=== PATIENT | female | born 1990 | race Caucasian/White ===

== ENCOUNTER 2025-02-24 14:01 | Outpatient (CLI) | payer MEDICAID, SELFPAY ==
[2025-02-24 14:38] LABS: Coronavirus 19, PCR Not Detected (NotDetected); Influenza A, PCR Not Detected (NotDetected); Influenza B, PCR Not Detected (NotDetected)
== END 2025-02-24 23:59 | disposition home or self-care (01) ==
LOC: LAB.DROPOF 02-25 10:13
PROVIDERS: PCP Student in an Organized Health Care Education/Training Program; Visit Provider Student in an Organized Health Care Education/Training Program
DX: R52 Pain, unspecified (principal); J02.9 Acute pharyngitis, unspecified
CPT/HCPCS: 87631

== ENCOUNTER 2025-04-10 12:27 | Emergency (ER) | payer MEDICAID, SELFPAY ==
--- NOTE | 2025-04-10 12:38 | XR_ITS ---
FINAL REPORT CLINICAL HISTORY: right shoulder pain, old injury COMPARISON: None FINDINGS: RIGHT SHOULDER Three views show no evidence of acute displaced fracture or dislocation of the visualized bony architecture. The joint spaces appear normal. IMPRESSION: Unremarkable exam. Reviewed, Interpreted and Dictated by Fred Yang MD Transcribed by Saray Mcqueen Authenticated and [facility]
[2025-04-10 12:39] VITALS: BP 162/97; PULSE 69; RESP 19; TEMP 36.9; O2SAT 98; BMI 39.3
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
[2025-04-10 13:55] VITALS: BP 146/79; PULSE 89; RESP 19; TEMP 37.1; O2SAT 98
== END 2025-04-10 13:56 | disposition home or self-care (01) ==
PROVIDERS: Emergency Provider Student in an Organized Health Care Education/Training Program
DX: M25.511 Pain in right shoulder (principal); G89.29 Other chronic pain; F17.290 Nicotine dependence, other tobacco product, uncomplicated
CPT/HCPCS: 73030; 99283

== ENCOUNTER 2025-05-28 10:02 | Outpatient (CLI) | payer MEDICAID, SELFPAY ==
--- OUTSIDE RECORDS SUMMARY | 2025-04-22 06:30 | XMS_ITS ---
Author Organization [facility] Address [address] [place] [address] Care Team Providers Care Bobj Developer Name Role Phone CHRISMENDOZA LATASHA Unavailable [phone] Allergies No Known Allergies Reason For Referral Reason eval and treat Diagnosis 1 Body mass index [BMI ] 40.0-44.9, adult (Z68.41) Referral Organization [facility] Referring Provider First Name [...] Status W/U Status Risk Notes Problem Overweight (951820991) Overweight (E66.3) Active confirmed Problem Body mass index 40+ - severely obese (638600192) Body mass index [BMI] 40.0-44.9, adult (Z68.41) Active confirmed Problem Obese class III (finding) (617997018) Obesity, class 3 (E66.813) Active confirmed Vital Signs Height 62 in 04/22/2025 Weight 220 lbs 04/22/2025 BMI 40.24 kg/m2 04/22/2025 Encounters Encounter Location Date Provider Diagnosis [facility] [address] [place] [address] 04/22/2025 LATASHA CORDOVA Body mass index [BMI] [...] to research medication interactions, contraindications, and possible short/terminal supervisor known and unknown effects these medications can cause. Our service does not recommend terminal supervisor usage of these medications and we highly [...] that these were obtained. We recommend continued ceramic products sales engineer consultations and continued diet/exercise modifications. We can refer you to an online ceramic products sales engineer: [email or web address] A video visit follow up [...] the initial laboratory work and your initial qjpl-pn-pwwf visit with us. If there is any [...] once weekly. Watch self-injection video: Wegovy Injection [email or web address]://www.[email or web address]/watch?v=xrDGMNH- JvE&t=11s Inspect the medicine; it should [...] about seeing a registered dietitian or an social insurance specialist. You might also think about joining [...] make healthy changes in your diet. An social insurance specialist or appraiser personal property can help you develop a safe and [...] to research medication interactions, contraindications, and possible short/retirement known and unknown effects these medications can cause. Our service does not recommend retirement usage of these medications and we highly [...] that these were obtained. We recommend continued ceramic products sales engineer consultations and continued diet/exercise modifications. We can refer you to an online ceramic products sales engineer: [email or web address] A video visit follow up will [...] the initial laboratory work and your initial ktoz-rm-tuqr visit with us. If there is any [...] once weekly. Watch self-injection video: Wegovy Injection [email or web address]?v=xrDGMNH-JvE&t= 11s Inspect the medicine; it should be [...] about seeing a registered dietitian or an social insurance specialist. You might also think about joining [...] make healthy changes in your diet. An social insurance specialist or appraiser personal property can help you develop a safe and [...] Test Name Order Date COMPREHENSIVE METABOLIC PANEL (45278) CBC (INCLUDES DIFF/PLT) (6399) URINALYSIS, COMPLETE (5463) 04/22/2025 HEMOGLOBIN A1c (496) 04/22/2025 HCG, TOTAL, QL (8435) 04/22/2025 LIPID PANEL, STANDARD (7600) 04/22/2025 THYROID PANEL WITH TSH (7444) 04/22/2025 Referrals Referral Date Details 04/22/2025 04/22/2025, eval and treat Next Appt Details Follow Up: PCP, 4W, Reason: Progress Notes * Ann DAVIDSONDOB:1990 (34 yo F)Acc No.[id number]:04/22/2025 Patient: Ann MENDOZA Provider: Marshall CORDOVA DO :1990 A ge:34 Y S ex:Female Date:04/22/2025 Phone: Address[address] [place], [id number] Subjective: * Chief Complaints: * G LP-1 [...] Other Systems: Review of Systems (ROS) [facility] for details. R eview of Systems [...] T3 UPTAKE T4 TOTAL FREE T4 INDEX [id number] LIPID [id number] HCG QL [id number] HGB [id number] CBC COMPLETE W/AUTO DIFF [id number] COMPREHEN METABOLIC [id number] SERVICES [facility] CENTER[facility]FEE Merchant / CC Processing [id number] Office Visit, Est Pt., Level 3, delivered asynchronous, Modifiers: GQ * Follow Up: P CP, 4W * Billing Information: * Visit Code: * Procedure Codes: VFEE Verification Fee. THYPN THYROID PANEL T3 UPTAKE T4 TOTAL FREE T4 INDEX T7. 71285 LIPID PANEL. 67710 HCG QL SERUM. 67198 HGB A1C. 21123 CBC COMPLETE W/AUTO DIFF WBC. 37513 COMPREHEN METABOLIC PANEL. S9088 [facility]. MPFEE Merchant / CC Processing Fee. 65661 Office Visit, Est Pt., Level 3, delivered asynchronous. Modifiers: GQ Images * [id number] * Sign off status: Completed true * Provider: Marshall CORDOVA, DO Date: Generated for Maciel aguilar/Adrian/Collette on: 08/01/2024 10:07 AM EST History and Physical Notes * HPI [...]
--- OUTSIDE RECORDS SUMMARY | 2025-05-20 07:00 | XMS_ITS ---
Author Organization [facility] Address [address] [place] [address] Care Team Providers Care Supervisor Drying And Softening Name Role Phone [facility] Unavailable [phone] REASON FOR VISIT F/U GLP1 Lab results Encounters Encounter Location Date Provider Diagnosis [facility] [address] [place] [address] 05/20/2025 [facility] Plan Of Treatment No Information Progress Notes * Ann DAVIDSONDOB:1990 (34 yo F)Acc No.[id number]:05/20/2025 Progress Notes Patient: Ann MENDOZA Provider: Rambo TINAJERO [place] :1990 A ge:34 Y S ex:Female Date:05/20/2025 Phone: Address:[address] [place], [place] [id number] Subjective: * Chief Complaints: * 1 . F/U GLP1 Lab results. * Medical History: Objective: * Vitals: Assessment: Plan: * Treatment: * Billing Information: * Visit Code: * Procedure Codes: * Electronic signature of [facility] on 06/01/2025 at 10:07 AM EST Sign off status: Pending * Provider: Rambo TINAJERO [place] Date: Generated for Maciel aguilar/Adrian/Collette on: 08/01/2024 10:07 AM EST
[2025-05-28 14:57] LABS: Coronavirus 19, PCR Not Detected (NotDetected); Influenza A, PCR Not Detected (NotDetected); Influenza B, PCR Not Detected (NotDetected)
--- OUTSIDE RECORDS SUMMARY | 2025-06-01 10:07 | XMS_ITS | Patient Health Record ---
Author Organization [facility] Address [address] [place] [address] Care Team Providers Care Surgical Attendant Name Role Phone [facility] Unavailable [phone] LATASHA CORDOVA Unavailable [phone] Allergies No Known Allergies Reason For Referral Reason eval and treat Diagnosis 1 Body mass index [BMI ] 40.0-44.9, adult (Z68.41) Referral Organization [facility] Referring Provider First Name LATASHA Referring Provider Last Name TASHA Referring Provider Speciality Family Med icine Referred Provider Specialty Nutrition Referral Priority Routine Referral Appointment Date 04/22/2025 Medications Medication SIG (Take, Route, Fr equency, Duration) Notes Start Date End Date Status Wegovy 0.25 MG/0.5ML Inject 0.25 MG Subc utaneous Once a week; Duration: 28 days 04/23/2025 A ctive Social History Tobacco Use: Social History Observation Description Date Details (start date - stop date) Current Smoker NA - NA Tobacco Control (Standard) Question Answer Notes Tobacco use: Current smoker Problems Problem Type SNOMED Code ICD Code Onset Dates Problem Status W/U Status Risk Notes Problem Overweight (898848239) Overweight (E66.3) Active confirmed Problem Body mass index 40+ - severely obese (060498532) Body mass index [BMI] 40.0-44.9, adult (Z68.41) Active confirmed Problem Obese class III (finding) (185884989) Obesity, class 3 (E66.813) Active confirmed Vital Signs Height 62 in 04/22/2025 Weight 220 lbs 04/22/2025 BMI 40.24 kg/m2 04/22/2025 Encounters Encounter Location Date Provider Diagnosis [facility] [address] [place] [address] 04/22/2025 LATASHA CORDOVA Body mass index [BMI] 40.0-44.9, adult Z68.41 and Obesity, class 3 E66.813 [facility] [address] [place] [address] 04/23/2025 LATASHA CORDOVA Assessments Encounter Date Diagnosis (ICD Code) Assessment [...] to research medication interactions, contraindications, and possible short/superintendent marine oil terminal known and unknown effects these medications can cause. Our service does not recommend jail usage of these medications and we highly [...] that these were obtained. We recommend continued insurance territory manager consultations and continued diet/exercise modifications. We can refer you to an online insurance territory manager: [email or web address] A video visit follow up [...] the initial laboratory work and your initial yzko-jq-uxrw visit with us. If there is any concern that you may be , or if you are not comfortable doing an at home test; DO NOT START THIS MEDICATION UNTIL YOU HAVE HAD A FOLLOW-UP VISIT. If you're taking psychiatric medications, discuss potential weight gain side effects, dose adjustments, and options for weight loss assistance with your provider.PATIENT EDUCATION: TODY How to take: Inject under the skin once weekly. Watch self-injection video: Wegovy Injection [email or web address] com/watch?v=xrDGMNH- [email or web address]&t=11s Inspect the medicine; it should [...] about seeing a registered dietitian or an civil engineering specialist. You might also think about joining [...] make healthy changes in your diet. An civil engineering specialist or personal banking assistant can help you develop a safe and [...] with the follow-up plan. Plan Of Treatment Pending Test Test Name Order Date COMPREHENSIVE METABOLIC PANEL (03268) CBC (INCLUDES DIFF/PLT) (6399) URINALYSIS, COMPLETE (8437) 04/22/2025 HEMOGLOBIN A1c (496) 04/22/2025 HCG, TOTAL, QL (8435) 04/22/2025 LIPID PANEL, STANDARD (7600) 04/22/2025 THYROID PANEL WITH TSH (7444) 04/22/2025 Insurance Providers Payer Name Payer Address Payer Phone Subscriber Number Group Number Insured Name Patient Relationship to Insured Coverage Start Date Coverage End Date [employer] FFS [address] [address] [place] [address] [phone] [id number] Ann Davidson Self - patient is the insured
== END 2025-05-28 23:59 ==
LOC: LAB.DROPOF 06-01 10:02
PROVIDERS: Visit Provider Student in an Organized Health Care Education/Training Program
DX: R52 Pain, unspecified (principal)
CPT/HCPCS: 87631

== ENCOUNTER 2025-06-09 12:17 | Outpatient (CLI) | payer MEDICAID, SELFPAY ==
[2025-06-09 14:52] LABS: Hematocrit 41.0 % (37.0-47.0); Hemoglobin 13.6 g/dL (12.2-16.2); Immature Granulocytes % 0.2 %; Mean Corpuscular HGB Conc 33.2 g/dL (31.8-35.4); Mean Corpuscular Hemoglobin 29.6 pg (27.0-31.2); Mean Corpuscular Volume 89.3 fl (81-99); Nucleated Red Blood Cells % 0 %; Platelet Count 243 K/mm3 (142-424); Red Blood Count 4.59 M/mm3 (4.20-5.40); Red Cell Distribution Width-SD 41.9 fL; White Blood Count 5.9 K/mm3 (4.8-10.8)
[2025-06-09 15:36] LABS: Alanine Aminotransferase 58 U/L (12-78); Albumin Level 4.8 g/dl (3.5-5.0); Albumin/Globulin Ratio 1.7 (1.1-1.8); Alkaline Phosphatase 61 U/L (38-126); Anion Gap 10.0 mEq/L (5-15); Aspartate Amino Transferase 52 U/L (14-36); Bilirubin,Total 0.5 mg/dl (0.2-1.3); Blood Urea Nitrogen 11 mg/dl (7-17); Calcium 10.3 mg/dl (8.4-10.2); Carbon Dioxide 26 mmol/L (22.0-30.0); Chloride 104 mmol/L (98-107); Cholesterol 153 mg/dl (140-200); Creatinine,Serum 0.70 mg/dl (0.52-1.04); Estimated Glomerular Filt Rate 95 ml/min (>60); GFR (African American) 115 ML/MIN (>60); Globulin 2.8 g/dL (1.3-3.2); Glucose 89 mg/dl (74-100); HDL Cholesterol 65 mg/dl (40-60); Potassium 5.0 mmoL/L (3.5-5.1); Sodium 135 mmol/L (136-145); Total Protein,Serum 7.6 g/dl (6.3-8.2); Triglycerides 72 mg/dl (30-150)
== END 2025-06-09 23:59 | disposition home or self-care (01) ==
LOC: LAB.DROPOF 06-10 14:04
PROVIDERS: PCP Student in an Organized Health Care Education/Training Program; Visit Provider Student in an Organized Health Care Education/Training Program
DX: G47.33 Obstructive sleep apnea (adult) (pediatric) (principal)
CPT/HCPCS: 80053; 80061; 85025

== ENCOUNTER 2025-06-16 12:21 | Outpatient (CLI) | payer MEDICAID, SELFPAY ==
--- OUTSIDE RECORDS SUMMARY | 2025-04-22 06:30 | XMS_ITS ---
Author Organization [facility] Address [address] [place] [address] Care Team Providers Care Client Service Administrator Name Role Phone CHRISMENDOZA LATASHA Unavailable [phone] Allergies No Known Allergies Reason For Referral Reason eval and treat Diagnosis 1 Body mass index [BMI ] 40.0-44.9, adult (Z68.41) Referral Organization [facility] Referring Provider First Name LATASHA Referring Provider Last Name TASHA Referring Provider Speciality Family Med icine Referred Provider Specialty Nutrition Referral Priority Routine Referral Appointment Date 04/22/2025 REASON FOR VISIT GLP-1 Prescription Request Medications Medication SIG (Take, Route, Fr equency, Duration) Notes Start Date End Date Status Wegovy 0.25 MG/0.5ML Inject 0.25 MG Subc utaneous Once a week; Duration: 28 days 04/22/2025 A ctive Social History Tobacco Use: Social History Observation Description Date Details (start date - stop date) Current Smoker NA - NA Tobacco Control (Standard) Question Answer Notes Tobacco use: Current smoker Problems Problem Type SNOMED Code ICD Code Onset Dates Problem Status W/U Status Risk Notes Problem Overweight (287239446) Overweight (E66.3) Active confirmed Problem Body mass index 40+ - severely obese (993118754) Body mass index [BMI] 40.0-44.9, adult (Z68.41) Active confirmed Problem Obese class III (finding) (525411615) Obesity, class 3 (E66.813) Active confirmed Vital Signs Height 62 in 04/22/2025 Weight 220 lbs 04/22/2025 BMI 40.24 kg/m2 04/22/2025 Encounters Encounter Location Date Provider Diagnosis [facility] [address] [place] [address] 04/22/2025 LATASHA CORDOVA Body mass index [BMI] 40.0-44.9, adult Z68.41 and Obesity, class 3 E66.813 Assessments Encounter Date Diagnosis (ICD Code) Assessment Notes Treatment Notes Treatment Clinical Notes Section Notes 04/22/2025 Body mass index [BMI] 40.0-44.9, adult (ICD-10 - Z68.41) Electronic Prior Authorization was requested for Wegovy 0.25 MG/0.5ML Solution Auto-injector. Provider can order medication once approval received.TREATMENT PLAN: INITIAL VISIT GLP1 PRESCRIBED AND LAB ORDER Patient has cleared requirements for GLP1 agonist prescription by our service. Patient meets criteria by our service and has been deemed to have no absolute contraindications to this medication. Tolerance with regards to major changes to psychiatric health, ability to tolerate meals, GI symptoms, ability to perform expected activities in their daily lives will be monitored. Side effects and symptoms are provided to us by the patient in the chart. We have informed the patient of the necessity to research medication interactions, contraindications, and possible short/intermission coordinator known and unknown effects these medications can cause. Our service does not recommend intermission coordinator usage of these medications and we highly recommend PCP followup regularly. Will prescribe 4 weeks of a GLP1 agonist (ozempic, wegovy, trulicity, mounjaro, zepbound). We will start at the lowest dose and proof of tolerance will be needed at every 4 week interval for consideration on dose increase. Please be aware that if your insurance requires prior authorization, we will submit it on your behalf to your insurance company. Final approval of medication coverage is determined by your insurance company. Obtain labs - CBC, CMP, a1c, TSH, lipids, UA, test (if female). If already done by another prescriber within 6 months, please provide us information that these were obtained. We recommend continued special certificate dictator consultations and continued diet/exercise modifications. We can refer you to an online special certificate dictator: [email or web address] A video visit follow up will be scheduled in 4 weeks. Please note side effects can include but are not limited to nausea, vomiting, regurgitation of food, diarrhea, dehydration, kidney injury, abdominal pain, pancreatitis, low blood sugar, poor appetite, psychiatric changes, etc. If you are experiencing any of these side effects, please go to the ER immediately. If you're taking psychiatric medications, discuss potential weight gain, dose adjustments, and options for weight loss assistance with your provider.TREATMENT PLAN: FEMALE PATIENTS ONLY WHEN GLP1 PRESCRIBED You have been given an initial dose of the requested medication; however, we do not yet have laboratory results, including a negative test. If you feel comfortable doing a home test, you may do so and start the medication after it is confirmed negative. Otherwise, you will need to wait for the results ordered with the initial laboratory work and your initial igks-xc-wblq visit with us. If there is any concern that you may be , or if you are not comfortable doing an at home test; DO NOT START THIS MEDICATION UNTIL YOU HAVE HAD A FOLLOW-UP VISIT. If you're taking psychiatric medications, discuss potential weight gain side effects, dose adjustments, and options for weight loss assistance with your provider.PATIENT EDUCATION: WEGOVY How to take: Inject under the skin once weekly. Watch self-injection video: Wegovy Injection [email or web address] com/[email or web address]?v=[email or web address]&t=11s Inspect the medicine; it should be clear and colorless. Do not use if discolored or has particles. Store unopened medicine in the refrigerator (do not freeze). Use within 28 days if kept at room temperature (below 86 degree(s) F/30 degree(s) C). Protect from light. Do not inject into bruised, tender, red, hard, scarred, or stretch-marked skin. Rotate injection sites at least 1 inch apart. If you miss a dose, take it as soon as you remember unless it's within 2 days of your next dosethen skip it. Do not double dose. If you miss 2+ doses, contact your doctor. Important: Tell your doctor about all medicines you take, including OTC and supplements. Follow your meal plan and exercise as advised. If diabetic, consult your doctor before changing diabetes meds. Attend all medical appointments. Warnings: Allergic reactions (rash, swelling, breathing difficulty, dizziness) require immediate ER visit. May increase cancer riskdiscuss with your doctor. Severe vomiting or diarrhea can cause dehydrationcontact your doctor if symptoms occur. May impair alertnessdo not drive or operate machinery until you know how it affects you. Avoid alcohol unless approved by your doctor. Do not use if ; use reliable control during treatment and for 2 months after stopping. Contact your doctor immediately if you become . Dispose of needles safelyask your pharmacist how. Do not share this medicine. Common side effects: Constipation, diarrhea, tiredness, nausea, stomach pain, dizziness, numbness/tingling, irregular heartbeat, hoarseness, kidney issues (urine changes), mood changes, lumps on neck, shakiness, shortness of breath, depression, suicidal thoughts, difficulty swallowing, sweating, unusual thirst, vision changes, persistent vomiting.PATIENT EDUCATION: WEIGHT LOSS Overview It can be a challenge to lose weight. But your doctor can help you make a weight-loss plan that meets your needs. You don't have to make a lot of big changes at once. A better idea might be to focus on small changes and stick with them. When those changes become habit, you can add a few more changes. Some people find it helpful to take an exercise or nutrition class. If you have questions, ask your doctor about seeing a registered dietitian or an non destructive testing specialist. You might also think about joining a weight-loss support group. If you're not ready to make changes right now, try to pick a date in the future. Then make an appointment with your doctor to talk about when and how you'll get started with a plan. Follow-up care is a artis part of your treatment and safety. Be sure to make and go to all appointments, and call your doctor if you are having problems. It's also a good idea to know your test results and keep a list of the medicines you take. How can you care for yourself at home? Set realistic goals. Many people expect to lose much more weight than is likely. A weight loss of 5% to 10% of your body weight may be enough to improve your health. Get family and friends involved to provide support. Talk to them about why you are trying to lose weight, and ask them to help. They can help by participating in exercise and having meals with you, even if they may be eating something different. Find what works best for you. If you do not have time or do not like to cook, a program that offers meal replacement bars or shakes may be better for you. Or if you like to prepare meals, finding a plan that includes daily menus and recipes may be best. Ask your doctor about other health professionals who can help you achieve your weight loss goals. A dietitian can help you make healthy changes in your diet. An non destructive testing specialist or personal development coach can help you develop a safe and effective exercise program. A counselor or psychiatrist can help you cope with issues such as depression, anxiety, or family problems that can make it hard to focus on weight loss. Consider joining a support group for people who are trying to lose weight. Your doctor can suggest groups in your area. 04/22/2025 Obesity, class 3 (ICD-10 - E66.813) 04/22/2025 Other Follow the treatment plan as indicated by the provider. Take any medications as prescribed. If you have any questions about your prescription, ask the pharmacist. Call 911 anytime you think you may need emergency care. For example, call if:You have severe trouble breathing.You have a seizure.Call your doctor now or seek immediate medical care if:You have trouble breathing.You have a fever with a stiff neck or a severe headache.You have pain or pressure in your chest or belly.You have a fever or cough that returns after getting better.You feel very sleepy, dizzy, or confused.You are not urinating.You have severe muscle pain.You have severe weakness, or you are unsteady.You have medical conditions that are getting worse.Watch closely for changes in your health, and be sure to contact your doctor if:You do not get better as expected.You are having a problem with your medicine. Risks, benefits, and side effects of medications (if any) discussed with patient, who agreed to the treatment plan. Patient's condition was stable at the end of the televisit. Follow-up instructions provided, including:Scheduling next appointmentMonitoring symptomsAdhering to treatment planContacting clinic with concernsNoncompliance with labs or recommendations may result in adverse outcomes. Patient understood and agreed to comply with the follow-up plan. Plan Of Treatment Medication Medication Name Sig Start Date Stop Date Notes Wegovy 0.25 MG/0.5ML Inject 0.25 MG Subc utaneous Once a week; Duration: 28 days 04/22/2025 Treatment Notes Assessment Notes Body mass index [BMI] 40.0-44.9, adult Electronic Prior Authorization was requested for Wegovy 0.25 MG/0.5ML Solution Auto-injector. Provider can order medication once approval received.TREATMENT PLAN: INITIAL VISIT GLP1 PRESCRIBED AND LAB ORDER Patient has cleared requirements for GLP1 agonist prescription by our service. Patient meets criteria by our service and has been deemed to have no absolute contraindications to this medication. Tolerance with regards to major changes to psychiatric health, ability to tolerate meals, GI symptoms, ability to perform expected activities in their daily lives will be monitored. Side effects and symptoms are provided to us by the patient in the chart. We have informed the patient of the necessity to research medication interactions, contraindications, and possible short/chcf known and unknown effects these medications can cause. Our service does not recommend chcf usage of these medications and we highly recommend PCP followup regularly. Will prescribe 4 weeks of a GLP1 agonist (ozempic, wegovy, trulicity, mounjaro, zepbound). We will start at the lowest dose and proof of tolerance will be needed at every 4 week interval for consideration on dose increase. Please be aware that if your insurance requires prior authorization, we will submit it on your behalf to your insurance company. Final approval of medication coverage is determined by your insurance company. Obtain labs - CBC, CMP, a1c, TSH, lipids, UA, test (if female). If already done by another prescriber within 6 months, please provide us information that these were obtained. We recommend continued special certificate dictator consultations and continued diet/exercise modifications. We can refer you to an online special certificate dictator: [email or web address] A video visit follow up will be scheduled in 4 weeks. Please note side effects can include but are not limited to nausea, vomiting, regurgitation of food, diarrhea, dehydration, kidney injury, abdominal pain, pancreatitis, low blood sugar, poor appetite, psychiatric changes, etc. If you are experiencing any of these side effects, please go to the ER immediately. If you're taking psychiatric medications, discuss potential weight gain, dose adjustments, and options for weight loss assistance with your provider.TREATMENT PLAN: FEMALE PATIENTS ONLY WHEN GLP1 PRESCRIBED You have been given an initial dose of the requested medication; however, we do not yet have laboratory results, including a negative test. If you feel comfortable doing a home test, you may do so and start the medication after it is confirmed negative. Otherwise, you will need to wait for the results ordered with the initial laboratory work and your initial hedr-uj-jfdg visit with us. If there is any concern that you may be , or if you are not comfortable doing an at home test; DO NOT START THIS MEDICATION UNTIL YOU HAVE HAD A FOLLOW-UP VISIT. If you're taking psychiatric medications, discuss potential weight gain side effects, dose adjustments, and options for weight loss assistance with your provider.PATIENT EDUCATION: TAMICAVY How to take: Inject under the skin once weekly. Watch self-injection video: Wegovy Injection [email or web address]?v=[email or web address]&t= 11s Inspect the medicine; it should be clear and colorless. Do not use if discolored or has particles. Store unopened medicine in the refrigerator (do not freeze). Use within 28 days if kept at room temperature (below 86 degree(s) F/30 degree(s) C). Protect from light. Do not inject into bruised, tender, red, hard, scarred, or stretch-marked skin. Rotate injection sites at least 1 inch apart. If you miss a dose, take it as soon as you remember unless it's within 2 days of your next dosethen skip it. Do not double dose. If you miss 2+ doses, contact your doctor. Important: Tell your doctor about all medicines you take, including OTC and supplements. Follow your meal plan and exercise as advised. If diabetic, consult your doctor before changing diabetes meds. Attend all medical appointments. Warnings: Allergic reactions (rash, swelling, breathing difficulty, dizziness) require immediate ER visit. May increase cancer riskdiscuss with your doctor. Severe vomiting or diarrhea can cause dehydrationcontact your doctor if symptoms occur. May impair alertnessdo not drive or operate machinery until you know how it affects you. Avoid alcohol unless approved by your doctor. Do not use if ; use reliable control during treatment and for 2 months after stopping. Contact your doctor immediately if you become . Dispose of needles safelyask your pharmacist how. Do not share this medicine. Common side effects: Constipation, diarrhea, tiredness, nausea, stomach pain, dizziness, numbness/tingling, irregular heartbeat, hoarseness, kidney issues (urine changes), mood changes, lumps on neck, shakiness, shortness of breath, depression, suicidal thoughts, difficulty swallowing, sweating, unusual thirst, vision changes, persistent vomiting.PATIENT EDUCATION: WEIGHT LOSS Overview It can be a challenge to lose weight. But your doctor can help you make a weight-loss plan that meets your needs. You don't have to make a lot of big changes at once. A better idea might be to focus on small changes and stick with them. When those changes become habit, you can add a few more changes. Some people find it helpful to take an exercise or nutrition class. If you have questions, ask your doctor about seeing a registered dietitian or an non destructive testing specialist. You might also think about joining a weight-loss support group. If you're not ready to make changes right now, try to pick a date in the future. Then make an appointment with your doctor to talk about when and how you'll get started with a plan. Follow-up care is a artis part of your treatment and safety. Be sure to make and go to all appointments, and call your doctor if you are having problems. It's also a good idea to know your test results and keep a list of the medicines you take. How can you care for yourself at home? Set realistic goals. Many people expect to lose much more weight than is likely. A weight loss of 5% to 10% of your body weight may be enough to improve your health. Get family and friends involved to provide support. Talk to them about why you are trying to lose weight, and ask them to help. They can help by participating in exercise and having meals with you, even if they may be eating something different. Find what works best for you. If you do not have time or do not like to cook, a program that offers meal replacement bars or shakes may be better for you. Or if you like to prepare meals, finding a plan that includes daily menus and recipes may be best. Ask your doctor about other health professionals who can help you achieve your weight loss goals. A dietitian can help you make healthy changes in your diet. An non destructive testing specialist or personal development coach can help you develop a safe and effective exercise program. A counselor or psychiatrist can help you cope with issues such as depression, anxiety, or family problems that can make it hard to focus on weight loss. Consider joining a support group for people who are trying to lose weight. Your doctor can suggest groups in your area. Other Follow the treatment plan as indicated by the provider. Take any medications as prescribed. If you have any questions about your prescription, ask the pharmacist. Call 911 anytime you think you may need emergency care. For example, call if:You have severe trouble breathing.You have a seizure.Call your doctor now or seek immediate medical care if:You have trouble breathing.You have a fever with a stiff neck or a severe headache.You have pain or pressure in your chest or belly.You have a fever or cough that returns after getting better.You feel very sleepy, dizzy, or confused.You are not urinating.You have severe muscle pain.You have severe weakness, or you are unsteady.You have medical conditions that are getting worse.Watch closely for changes in your health, and be sure to contact your doctor if:You do not get better as expected.You are having a problem with your medicine. Pending Test Test Name Order Date COMPREHENSIVE METABOLIC PANEL (21092) CBC (INCLUDES DIFF/PLT) (6399) URINALYSIS, COMPLETE (5463) 04/22/2025 HEMOGLOBIN A1c (496) 04/22/2025 HCG, TOTAL, QL (8435) 04/22/2025 LIPID PANEL, STANDARD (7600) 04/22/2025 THYROID PANEL WITH TSH (7444) 04/22/2025 Referrals Referral Date Details 04/22/2025 04/22/2025, eval and treat Next Appt Details Follow Up: PCP, 4W, Reason: Progress Notes * Ann DAVIDSONDOB:1990 (34 yo F)Acc No.[id number]:04/22/2025 Patient: Ann MENDOZA Provider: Marshall CORDOVA DO :1990 A ge:34 Y S ex:Female Date:04/22/2025 Phone: Address[address] [place], [phone] Subjective: * Chief Complaints: * G LP-1 Prescription Request * HPI: T [facility] Complaint History: The Patient, the Female with age 34 is presenting with GLP-1 Prescription Request. She is seeking this medication for weight loss and reports having tried lifestyle modifications (diet or exercise). She has tried changing her diet to protein and water and walking but nothing seems to work. She reports having gained 20-39 pounds in the last year. She reports having symptoms of fatigue and tiredness. She has not previously taken a GLP-1 medication and is requesting Ozempic. She denies currently being , recently giving , currently , having a personal or family history of medullary thyroid cancer or thyroid nodules, any history of pancreatitis, and any gallbladder issues. Regarding the question, Is there anything else you would like the provider to know?, the patient answered, I have a hard time with my weight I have a hard time losing it I'm not able to do things with my kids I'm not able to get around us I would like to it causes me to be very fatigued very tired and I just want to be healthier I want to be able to get out an.. Medications: The patient denies taking any prescription medications. Allergies: The patient denies any known drug allergies. PATIENT:My visit today was because my health is not what it used to be I'm really overweight I do not have the energy or the motivation to be able to do things with my family my kids it gets hard to move around without being out of breath and I just really want to be able to be active I want to be able to be healthy I want to be able to do things with my children my family I want to be able to move to one area of my home without being out of breath I just I'm really concerned about my health and I feel like this is the best opportunity that I can go because I have tried diets I have tried exercising and it just seems like I have a hard time losing weight. I just want to be healthier I have a hard time losing weight I have a hard time getting around I have a hard time doing things with my family my children without being out of breath and I felt like this was my only option because I've done everything else. An when do I know that my medicine is called into the pharmacy. * ROS: A ll Other Systems: Review of Systems (ROS) S [facility] for details. R eview of Systems (ROS) No additional review of systems reported. * Medical History: * Surgical History: D enjuanjo Past Surgical History * Hospitalization/Major Diagno stic Procedure: D enies Past Hospitalization * Family History: Denies. * Social History: T obacco Use: T obacco Control (Standard) T obacco use: C urrent smoker. D rugs/Alcohol: D o you drink alcohol?: No. * Medications: N one * Allergies: N .K.D.A.no[Allergies Verified] Objective: * Vitals: H t: 62 in, Wt:220lbs, BMI:40.24Index. * Examination: G eneral Examination: GENERAL APPEARANCE: i n no acute distress. EARS: h earing grossly intact. NEUROLOGIC: a lert and oriented , speech clear. PSYCH: m ood/affect normal, understands directions. ? Assessment: * Assessment: 1. B manuel mass index [BMI] 40.0-44.9, adult - Z68.41 (Primary) 2 . O besity, class 3 - E66.813 Plan: * Treatment: 2. O thers Notes: Follow the treatment plan as indicated by the provider. Take any medications as prescribed. If you have any questions about your prescription, ask the pharmacist. Call 911anytime you think you may need emergency care. For example, call if:You have severe trouble breathing.You have a seizure.Call your doctor nowor seek immediate medical care if:You have trouble breathing.You have a fever with a stiff neck or a severe headache.You have pain or pressure in your chest or belly.You have a fever or cough that returns after getting better.You feel very sleepy, dizzy, or confused.You are not urinating.You have severe muscle pain.You have severe weakness, or you are unsteady.You have medical conditions that are getting worse.Watch closely for changes in your health, and be sure to contact your doctor if:You do not get better as expected.You are having a problem with your medicine. Clinical Notes:Risks, benefits, and side effects of medications (if any) discussed with patient, who agreed to the treatment plan. Patient's condition was stable at the end of the televisit. Follow-up instructions provided, including:Scheduling next appointmentMonitoring symptomsAdhering to treatment planContacting clinic with concernsNoncompliance with labs or recommendations may result in adverse outcomes. Patient understood and agreed to comply with the follow-up plan. * Procedure Codes: V FEE Verification FeeTHYPN THYROID PANEL T3 UPTAKE T4 TOTAL FREE T4 INDEX [id number] LIPID [id number] HCG QL [id number] HGB [id number] CBC COMPLETE W/AUTO DIFF [id number] COMPREHEN METABOLIC [id number] SERVICES [facility] Merchant / CC Processing [id number] Office Visit, Est Pt., Level 3, delivered asynchronous, Modifiers: GQ * Follow Up: P CP, 4W * Billing Information: * Visit Code: * Procedure Codes: VFEE Verification Fee. THYPN THYROID PANEL T3 UPTAKE T4 TOTAL FREE T4 INDEX T7. 56411 LIPID PANEL. 52198 HCG QL SERUM. 62975 HGB A1C. 83595 CBC COMPLETE W/AUTO DIFF WBC. 47800 COMPREHEN METABOLIC PANEL. S9088 [facility]. MPFEE Merchant / CC Processing Fee. [id number] Office Visit, Est Pt., Level 3, delivered asynchronous. Modifiers: GQ Images * [id number] * Sign off status: Completed true * Provider: Marshall CORDOVA, Date: Generated for Maciel aguilar/Adrian/Collette on: 08/16/2024 12:23 PM EST History and Physical Notes * HPI (History of Present Illness) Category Sub-Category Detail Notes Category Not es TeleHealth Complaint History The Patient, the Female with age 34 is presenting with GLP-1 Prescription Request. She is seeking this medication for weight loss and reports having tried lifestyle modifications (diet or exercise). She has tried changing her diet to protein and water and walking but nothing seems to work. She reports having gained 20-39 pounds in the last year. She reports having symptoms of fatigue and tiredness. She has not previously taken a GLP-1 medication and is requesting Ozempic. She denies currently being , recently giving , currently , having a personal or family history of medullary thyroid cancer or thyroid nodules, any history of pancreatitis, and any gallbladder issues. Regarding the question, Is there anything else you would like the provider to know?, the patient answered, I have a hard time with my weight I have a hard time losing it I'm not able to do things with my kids I'm not able to get around us I would like to it causes me to be very fatigued very tired and I just want to be healthier I want to be able to get out an.. Medications: The patient denies taking any prescription medications. Allergies: The patient denies any known drug allergies. PATIENT:My visit today was because my health is not what it used to be I'm really overweight I do not have the energy or the motivation to be able to do things with my family my kids it gets hard to move around without being out of breath and I just really want to be able to be active I want to be able to be healthy I want to be able to do things with my children my family I want to be able to move to one area of my home without being out of breath I just I'm really concerned about my health and I feel like this is the best opportunity that I can go because I have tried diets I have tried exercising and it just seems like I have a hard time losing weight. I just want to be healthier I have a hard time losing weight I have a hard time getting around I have a hard time doing things with my family my children without being out of breath and I felt like this was my only option because I've done everything else. An when do I know that my medicine is called into the pharmacy Examination Category Sub-Category Detail Notes Category Not es General Examination GENERAL APPEARANCE: in no acute di stress EARS: hearing grossly inta ct NEUROLOGIC: alert and oriented , speech clear PSYCH: mood/affect normal, understands directions Consultation Request Notes Referral Date Referring Provider Referred Provider Not es 04/22/2025 LATASHA CORDOVA eval and trea t
--- OUTSIDE RECORDS SUMMARY | 2025-05-20 07:00 | XMS_ITS ---
Author Organization [facility] Address [address] [place] [address] Care Team Providers Care Bay Stocker Name Role Phone [facility] Unavailable [phone] REASON FOR VISIT F/U GLP1 Lab results Encounters Encounter Location Date Provider Diagnosis [facility] [address] [place] [address] 05/20/2025 [facility] Plan Of Treatment No Information Progress Notes * Ann DAVIDSONDOB:1990 (34 yo F)Acc No.[id number]:05/20/2025 Progress Notes Patient: Ann MENDOZA Provider: Rambo TINAJERO [place] :1990 A ge:34 Y S ex:Female Date:05/20/2025 Phone: Address:[address] [place], [place] [id number] Subjective: * Chief Complaints: * 1 . F/U GLP1 Lab results. * Medical History: Objective: * Vitals: Assessment: Plan: * Treatment: * Billing Information: * Visit Code: * Procedure Codes: * Electronic signature of [facility] on 06/16/2025 at 12:24 PM EST Sign off status: Pending * Provider: Rambo TINAJERO [place] Date: Generated for Maciel aguilar/Adrian/Collette on: 08/16/2024 12:24 PM EST
--- NOTE | 2025-06-16 12:24 | XR_ITS ---
FINAL REPORT CLINICAL HISTORY: left wrist pain FINDINGS: AP, oblique, and lateral views of the left wrist were obtained. There is no prior exam for comparison. There is no acute fracture or dislocation. The joint spaces are preserved. The soft tissues are normal. IMPRESSION: No acute osseous abnormality of the left wrist. Reviewed, Interpreted and Dictated by Suzette Sebastian MD Transcribed by Saray Mcqueen Authenticated and [facility]
--- NOTE | 2025-06-16 12:24 | XR_ITS ---
FINAL REPORT CLINICAL HISTORY: right wrist pain FINDINGS: AP, oblique, and lateral views of the right wrist were obtained. There is no prior exam for comparison. There is no acute fracture or dislocation. The joint spaces are preserved. The soft tissues are normal. IMPRESSION: No acute osseous abnormality of the right wrist. Reviewed, Interpreted and Dictated by Suzette Sebastian MD Transcribed by Saray Mcqueen Authenticated and [facility]
--- OUTSIDE RECORDS SUMMARY | 2025-06-16 12:24 | XMS_ITS | Patient Health Record ---
Author Organization [facility] Address [address] [place] [address] Care Team Providers Care Plant Pathologist Name Role Phone [facility] Unavailable [phone] LATASHA CORDOVA Unavailable [phone] Allergies No Known Allergies Reason For Referral Reason eval and treat Diagnosis 1 Body mass index [BMI ] 40.0-44.9, adult (Z68.41) Referral Organization [facility] Referring Provider First Name LATASHA [...] Status W/U Status Risk Notes Problem Overweight (961379050) Overweight (E66.3) Active confirmed Problem Body mass index 40+ - severely obese (644395702) Body mass index [BMI] 40.0-44.9, adult (Z68.41) Active confirmed Problem Obese class III (finding) (540994029) Obesity, class 3 (E66.813) Active confirmed Vital Signs Height 62 in 04/22/2025 Weight 220 lbs 04/22/2025 BMI 40.24 kg/m2 04/22/2025 Encounters Encounter Location Date Provider Diagnosis [facility] [address] [place] [address] 04/22/2025 LATASHA CORDOVA Body mass index [BMI] 40.0-44.9, adult Z68.41 and Obesity, class 3 E66.813 [facility] [address] [place] [phone] 04/23/2025 LATASHA CORDOVA Assessments Encounter Date Diagnosis [...] to research medication interactions, contraindications, and possible short/parts counterman known and unknown effects these medications can cause. Our service does not recommend senior care usage of these medications and we highly [...] that these were obtained. We recommend continued assistant professor of drama consultations and continued diet/exercise modifications. We can refer you to an online assistant professor of drama: [email or web address] A video visit follow up [...] the initial laboratory work and your initial ocdc-lq-xkly visit with us. If there is any [...] once weekly. Watch self-injection video: Wegovy Injection [email or web address] com/watch?v=xrDGMNH- JvE&t=11s Inspect the medicine; it should [...] about seeing a registered dietitian or an residential lawn specialist. You might also think about joining [...] make healthy changes in your diet. An residential lawn specialist or personal injury specialist can help you develop a safe and [...] Test Name Order Date COMPREHENSIVE METABOLIC PANEL (22760) CBC (INCLUDES DIFF/PLT) (6399) URINALYSIS, COMPLETE (7005) 04/22/2025 HEMOGLOBIN A1c (496) 04/22/2025 HCG, TOTAL, QL (8435) 04/22/2025 LIPID PANEL, STANDARD (7600) 04/22/2025 THYROID PANEL WITH TSH (7444) 04/22/2025 Insurance Providers Payer Name Payer Address Payer Phone Subscriber Number Group Number Insured Name Patient Relationship to Insured Coverage Start Date Coverage End Date [employer] FFS [address] [address] [place] [address] [id number] Ann Davidson Self - patient is the insured
[2025-06-16 13:00] LABS: INR 1.00 (0.9-1.1); Prothrombin Time 11.1 seconds (10.1-12.5)
[2025-06-16 13:33] LABS: HCG Qualitative, Serum Negative (Negative)
[2025-06-17 09:12] LABS: Hep A Ab, Total Positive (Negative); Hep B Core Ab, Total Negative (Negative); Hep B Surface Ab, Qual Reactive (.); Hepatitis B Surface Antigen Negative (Negative)
== END 2025-06-16 23:59 | disposition home or self-care (01) ==
LOC: LAB 12:22
PROVIDERS: PCP Student in an Organized Health Care Education/Training Program; Visit Provider Student in an Organized Health Care Education/Training Program
DX: M25.532 Pain in left wrist (principal); M25.531 Pain in right wrist; B18.2 Chronic viral hepatitis C
CPT/HCPCS: 36415; 73110; 84703; 85610; 86706; 87389; 87522